=== PATIENT | male | born 1995 | race Caucasian/White ===

== ENCOUNTER 2016-12-26 13:26 | Emergency (ER) | payer OTHER ==
[~2016-12-26] VITALS: Ht 193 cm; Wt 75.0 kg
[2016-12-26 13:32] VITALS: TEMP 37.2; Ht 193 cm; Wt 75.0 kg
[2016-12-26] MEDS ORDERED: MoRPHine SULFATE 4 MG/ML 1 ML CARP\\VIAL IV STA (14:43)
[2016-12-26] MEDS ORDERED: ONDANSETRON INJ 2 MG/ML 2 ML VIAL IV STA (14:43)
[2016-12-26] MEDS ORDERED: SODIUM CHLORIDE 0.9% 1000ML 1,000 ML IV STA (14:43)
[2016-12-26 15:00] LABS: BASO % 0.3 %; BASO ABS # 0.03 K/uL (0-0.2); COMPLETE YES; EOS % 0.4 %; HEMATOCRIT 43.3 % (42-52); IG% 0.4 %; LYMPH % 19.3 %; LYMPH ABS # 2.21 K/uL (1.2-3.4); MEAN CORPUSCULAR HEMOGLOBIN 31.1 pg (25-34); MEAN CORPUSCULAR HGB CONC 35.3 g/dl (32-36); MEAN PLATELET VOLUME 8.7 fL (7.4-10.4); MONO % 8.4 %; NEUT % 71.2 %; PLATELET COUNT 276 K/uL (130-400); RED BLOOD COUNT 4.92 M/uL (4.7-6.1); WHITE BLOOD COUNT 11.43 K/uL (4.8-10.8)
[2016-12-26 15:18] LABS: BUN/CREATININE RATIO 13.5 (10-20); CREATININE 1.1 mg/dl (0.60-1.40); POTASSIUM 3.9 mmol/L (3.5-5.1)
[2016-12-26 15:27] LABS: MANUAL MICROSCOPIC REQUIRED? NO; REVIEW REQ? NO; URINE APPEARANCE TURBID (CLEAR); URINE BILIRUBIN NEG (NEG); URINE COLOR YELLOW; URINE NITRITE NEG (NEG); URINE SPECIFIC GRAVITY 1.018 (1.000-1.030); UROBILINOGEN NEG (NEG)
--- NOTE | 2016-12-26 15:38 | DIAGNOSTIC IMAGING REPORT ---
ABDOMEN AND PELVIS CT WITHOUT CONTRAST CT DOSE: 486.38 mGy.cm HISTORY: right flank pain eval for stone TECHNIQUE: Multiaxial CT images of the abdomen and pelvis were performed without the use of intravenous and oral contrast according to the standard department stone protocol. COMPARISON STUDY: None. FINDINGS: Lung bases are clear. Liver spleen and pancreas are unremarkable. Gallbladder is negative for distention. Right kidney demonstrates mild hydroureteronephrosis. There is a 5 mm nonobstructing calcification upper pole right kidney. Left kidney is negative for hydronephrosis. There is mild fullness of the right ureter to the distal aspect of the ureter with a 4 mm partially obstructing calculus. Bladder is midline and relatively collapsed. Bowel pattern throughout the abdomen and pelvis is considered nonobstructive. IMPRESSION: 1. 4 mm obstructing calculus distal aspect right ureter.. 2. Nonobstructing calculus upper pole right kidney. 3. Nonobstructive bowel pattern. Electronically signed by: Mario Duke M.D. 12/26/2016 3:36 PM Dictated Date/Time: 12/26/2016 3:34 PM
[2016-12-26] MEDS ORDERED: OXYC1TAB3 PO (16:22)
[2016-12-26] MEDS ORDERED: ONDA4TAB10 SL (16:22)
[2016-12-26] MEDS ORDERED: TAMS0.4C38 PO (16:22)
[2016-12-26 16:28] VITALS: BP 139/88; PULSE 78; O2SAT 99
[2016-12-26] MEDS ORDERED: TAMSULOSIN HCL 0.4 MG CAP PO ONE (16:30)
--- NOTE | 2016-12-26 18:07 | EMERGENCY ROOM VISIT NOTE ---
History Report prepared by Zeoy: Consuelo Yap Under the Supervision of: Dr. Antonio Panda M.D. First contact with patient: 14:37 Chief Complaint: ABDOMINAL PAIN Stated Complaint: ABD. PAIN Nursing Triage Summary: Triage note: Pt reports right lower abd pain that wraps around to back x 3 days. pt reports "i feel like i have to urinate but can't go." pt reports he was able to urinate today. History of Present Illness The patient is a 21 year old male who presents to the Emergency Room with complaints of waxing and waning bilateral lower abdominal pain starting 3 days ago. He initially started having right flank pain and then started having the lower abdominal pain. He describes his right flank pain to be a dull pain. He reports his lower abdominal pain is more severe than the right flank pain. He also reports bladder pressure. He denies burning with urination. He denies fevers, chills, nausea, vomiting, diarrhea, blood in stool, or any other complaints. He does not have any medical problems. The patient denies any history of abdominal surgeries. He denies any known family history of kidney stones. Source of History: patient Onset: 3 days ago Position: abdomen (bilateral) Timing: waxes/wanes Modifying Factors (Relieving): other (none) Associated Symptoms: No chills, No diarrhea, No fevers, No nausea, No vomiting Review of Systems See HPI for pertinent positives & negatives. A total of 10 systems reviewed and were otherwise negative. Past Medical & Surgical Medical Problems: (1) No Known Active Medical Problems Family History Patient reports no known family medical history. Social History Smoking Status: Never Smoker Marital Status: single Occupation Status: student Current/Historical Medications Scheduled Ondasetron Odt (Zofran Odt), 4 MG SL Q6H Scheduled PRN Oxycodone Ir (Roxicodone Ir), 5 MG PO Q4H PRN for Pain Tamsulosin Hcl (Flomax), 0.4 MG PO DAILY PRN for until stone passes Allergies Coded Allergies: No Known Allergies (Unverified , 12/26/16) Physical Exam Vital Signs Date Time Temp Pulse Resp B/P Pulse Ox O2 Delivery O2 Flow Rate FiO2 12/26/16 16:28 78 16 139/88 99 Room Air 12/26/16 15:04 62 16 127/84 100 Room Air 12/26/16 13:32 37.2 70 18 130/82 97 Room Air Physical Exam Constitutional: Vital signs reviewed. Eyes: Pupils are equal round reactive to light. Conjunctiva are noninjected. ENT: Pharynx is clear without erythema or exudate. Mucous membranes are moist. Neck supple without meningeal signs. Respiratory: Clear to auscultation bilaterally. Breath sounds are equal bilaterally. Cardiovascular: Regular rate and rhythm. No rubs or gallops. GI: Soft, nondistended and nontender. Bowel sounds are present. Musculoskeletal: No peripheral edema. No CVA tenderness. Integumentary: No cyanosis. Neurological: The patient is awake and alert. No focal deficits. Psychiatric: Normal affect. Medical Decision & Procedures ER Provider Diagnostic Interpretation: CT results as stated below per my review and radiologist interpretation. ABDOMEN AND PELVIS CT WITHOUT CONTRAST CT DOSE: 486.38 mGy.cm HISTORY: right flank pain eval for stone TECHNIQUE: Multiaxial CT images of the abdomen and pelvis were performed without the use of intravenous and oral contrast according to the standard department stone protocol. COMPARISON STUDY: None. FINDINGS: Lung bases are clear. Liver spleen and pancreas are unremarkable. Gallbladder is negative for distention. Right kidney demonstrates mild hydroureteronephrosis. There is a 5 mm nonobstructing calcification upper pole right kidney. Left kidney is negative for hydronephrosis. There is mild fullness of the right ureter to the distal aspect of the ureter with a 4 mm partially obstructing calculus. Bladder is midline and relatively collapsed. Bowel pattern throughout the abdomen and pelvis is considered nonobstructive. IMPRESSION: 1. 4 mm obstructing calculus distal aspect right ureter.. 2. Nonobstructing calculus upper pole right kidney. 3. Nonobstructive bowel pattern. Electronically signed by: Mario Duke M.D. 12/26/2016 3:36 PM Dictated Date/Time: 12/26/2016 3:34 PM Laboratory Results 12/26/16 14:41 Red Blood Count 4.92, Mean Corpuscular Volume 88.0, Mean Corpuscular Hemoglobin 31.1, Mean Corpuscular Hemoglobin Concent 35.3, Mean Platelet Volume 8.7, Neutrophils (%) (Auto) 71.2, Lymphocytes (%) (Auto) 19.3, Monocytes (%) (Auto) 8.4, Eosinophils (%) (Auto) 0.4, Basophils (%) (Auto) 0.3, Neutrophils # (Auto) 8.13, Lymphocytes # (Auto) 2.21, Monocytes # (Auto) 0.96, Eosinophils # (Auto) 0.05, Basophils # (Auto) 0.03 12/26/16 14:41 Test 12/26/16 14:35 12/26/16 14:41 Urine Color YELLOW Urine Appearance TURBID (CLEAR) Urine pH 8.0 (4.5-7.5) Urine Specific [place] 1.018 (1.000-1.030) Urine Protein NEG (NEG) Urine Glucose (UA) NEG (NEG) Urine Ketones NEG (NEG) Urine Occult Blood 1+ (NEG) Urine Nitrite NEG (NEG) Urine Bilirubin NEG (NEG) Urine Urobilinogen NEG (NEG) Urine Leukocyte Esterase NEG (NEG) Urine WBC (Auto) 1-5 /hpf (0-5) Urine RBC (Auto) 10-30 /hpf (0-4) Urine Hyaline Casts (Auto) 1-5 /lpf (0-5) Urine Epithelial Cells (Auto) 5-10 /lpf (0-5) Urine Bacteria (Auto) NEG (NEG) White Blood Count 11.43 K/uL (4.8-10.8) Red Blood Count 4.92 M/uL (4.7-6.1) Hemoglobin 15.3 g/dL (14.0-18.0) Hematocrit 43.3 % (42-52) Mean Corpuscular Volume 88.0 fL (80-100) Mean Corpuscular Hemoglobin 31.1 pg (25-34) Mean Corpuscular Hemoglobin Concent 35.3 g/dl (32-36) Platelet Count 276 K/uL (130-400) Mean Platelet Volume 8.7 fL (7.4-10.4) Neutrophils (%) (Auto) 71.2 % Lymphocytes (%) (Auto) 19.3 % Monocytes (%) (Auto) 8.4 % Eosinophils (%) (Auto) 0.4 % Basophils (%) (Auto) 0.3 % Neutrophils # (Auto) 8.13 K/uL (1.4-6.5) Lymphocytes # (Auto) 2.21 K/uL (1.2-3.4) Monocytes # (Auto) 0.96 K/uL (0.11-0.59) Eosinophils # (Auto) 0.05 K/uL (0-0.5) Basophils # (Auto) 0.03 K/uL (0-0.2) RDW Standard Deviation 42.5 fL (36.4-46.3) RDW Coefficient of Variation 13.2 % (11.5-14.5) Immature Granulocyte % (Auto) 0.4 % Immature Granulocyte # (Auto) 0.05 K/uL (0.00-0.02) Anion Gap 9.0 mmol/L (3-11) Est Creatinine Clear Calc Drug Dose 113.6 ml/min Estimated GFR () 111.4 Estimated GFR (Non- 96.1 BUN/Creatinine Ratio 13.5 (10-20) Calcium Level 9.0 mg/dl (8.5-10.1) Total Bilirubin 0.6 mg/dl (0.2-1) Direct Bilirubin 0.1 mg/dl (0-0.2) Aspartate Amino Transf (AST/SGOT) 16 U/L (15-37) Alanine Aminotransferase (ALT/SGPT) 22 U/L (12-78) Alkaline Phosphatase 66 U/L (45-117) Total Protein 7.0 gm/dl (6.4-8.2) Albumin 3.9 gm/dl (3.4-5.0) Lipase 102 U/L (73-393) Laboratory results as reviewed by me. Medications Administered Medications (Trade) Dose Ordered Sig/Sherman Route Start Time Stop Time Status Last Admin Dose Admin Morphine Sulfate (MoRPHine SULFATE INJ) 4 mg ONE STAT IV 12/26/16 14:43 12/26/16 14:45 DC 12/26/16 15:00 4 MG Ondansetron HCl 4 mg 4 mg NOW STAT IV 12/26/16 14:43 12/26/16 14:45 DC 12/26/16 15:00 4 MG Sodium Chloride (Nss 1000ml) 1,000 ml @ 999 mls/hr Q1H1M STAT IV 12/26/16 14:43 12/26/16 15:43 DC 12/26/16 15:00 999 MLS/HR Tamsulosin HCl (Flomax Cap) 0.4 mg NOW ONCE PO 12/26/16 16:30 12/26/16 16:31 DC 12/26/16 16:25 0.4 MG ED Course 1437: The patient was evaluated in room A11B. A complete history and physical exam was performed. 1443: Sodium Chloride 1000 ml @ 999 mls/hr IV, Zofran Inj 4 mg IV, Morphine Sulfate 4 mg IV 1630: Flomax Cap 0.4 mg PO 1633: Upon reevaluation, the patient appeared to have improvement of his symptoms. I discussed tonight's findings with him. He is leaving for [place] tomorrow. I told him that this is not advisable as he can have severe chest pain during the trip or even on the plane. He said that he will think about it. He will be discharged home. Medical Decision This is a 21-year-old male who presents with right flank pain and lower abdominal pain. Differential diagnosis includes appendicitis, renal colic, hydronephrosis, inflammatory bowel disease, UTI. I did perform a limited focused review of portions of the patient's old chart on the electronic medical record. The patient has had no prior visits. I did evaluate the patient as noted above. The patient is presenting with right flank pain. He has no abdominal tenderness on examination. IV access was established. I did treat him with IV morphine and Zofran. He is also given normal saline IV. I did order and personally review the patient's urinalysis as described above. He has hematuria but no signs of significant infection. I did order and review the patient's blood work as noted in the electronic medical record. His white blood cell count is slightly elevated which is a nonspecific finding. His renal function is unremarkable. I did order a CT of the abdomen and pelvis. I did review the images myself as well as the radiology report as described above.He does have a 4 mm distal right ureteral stone. I did reassess the patient. He is feeling much better. I did discuss the test results with him in detail. He does state that he is planning on traveling to [place] tomorrow. I did state that this would be risky for him and that perhaps he should cancel his trip as he may have recurrence of fairly significant pain. He said he would think about it. He was given Flomax here. He was discharged with a prescription for oxycodone, Flomax and Zofran. He is given precautions regarding these medications. He was referred to Dr. Hendrix of urology. He was given a note to present to the airline and travel services. [place] Drug Monitoring Program Search Results: patient reviewed within database Drug Monitoring Findings: No patients with that name were found. Impression Primary Impression: Renal colic Scribe Attestation The scribe's documentation has been prepared under my direct and personally reviewed by me in its entirety. I confirm that the note above accurately reflects all work, treatment, procedures, and medical decision making performed by me. Departure Information Dispostion Home / Self-Care Prescriptions Tamsulosin Hcl (FLOMAX) 0.4 Mg Cap 0.4 MG PO DAILY Y for until stone passes, #7 CAP Prov: Antonio Panda M.D. 12/26/16 Ondasetron Odt (ZOFRAN ODT) 4 Mg Tab 4 MG SL Q6H for Nausea, #10 TAB Prov: Antonio Panda M.D. 12/26/16 Oxycodone Ir (Roxicodone Ir) 5 Mg Tab 5 MG PO Q4H Y for Pain, #25 TAB Prov: Antonio Panda M.D. 12/26/16 Referrals No Doctor, Assigned (PCP) Forms HOME CARE DOCUMENTATION FORM, IMPORTANT VISIT INFORMATION Patient Instructions Kidney Stones Expectant Therapy, My [facility] Additional Instructions You have been examined and treated today on an emergency basis only. This is not a substitute for, or an effort to provide, complete comprehensive medical care. It is impossible to recognize and treat all injuries or illnesses in a single emergency department visit. It is therefore important that you follow up closely with Dr. Hendrix of urology. Call as soon as possible for an appointment. Return for worsening symptoms or if you develop fever, vomiting, or any other concerning symptoms. Stop Flomax once you have passed the stone.
[2017-01-29] MEDS ORDERED: OXYC1TAB3 PO (14:28)
[2017-02-02] MEDS ORDERED: OXYC1TAB3 PO (13:09)
== END 2016-12-26 16:38 | disposition home or self-care (01) ==
LOC: C.EDB 13:28 → C.EDA 16:38
DX: N23 Unspecified renal colic (principal); N20.1 Calculus of ureter

== ENCOUNTER → 2017-01-19 | Outpatient (CLI) | payer OTHER ==
[~2017-01-19] MED LIST: ONDA4TAB10 SL; OXYC1TAB3 PO
== END | disposition home or self-care (01) ==
LOC: C.LABSPEC 14:44
PROVIDERS: ATTEND Urology
DX: Z00.00 Encounter for general adult medical examination without abnormal findings (principal); N20.0 Calculus of kidney; N20.1 Calculus of ureter

== ENCOUNTER 2017-01-20 03:55 | Emergency (ER) | payer OTHER ==
[~2017-01-20] VITALS: Ht 193 cm; Wt 77.9 kg
[2017-01-20 03:58] VITALS: BP 129/80; PULSE 76; TEMP 37; O2SAT 95; Ht 193 cm; Wt 77.9 kg
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
[2017-01-29] MEDS ORDERED: OXYC1TAB3 PO (14:28)
[2017-02-02] MEDS ORDERED: OXYC1TAB3 PO (13:09)
== END 2017-01-20 04:23 | disposition home or self-care (01) ==
LOC: C.EDB 03:55
DX: S01.81XA Laceration without foreign body of other part of head, initial encounter (principal); W22.01XA Walked into wall, initial encounter

== ENCOUNTER → 2017-01-24 | Outpatient (CLI) | payer OTHER ==
--- NOTE | 2017-01-24 13:03 | DIAGNOSTIC IMAGING REPORT ---
KUB CLINICAL HISTORY: Right ureteral stone. COMPARISON STUDY: CT of the abdomen and pelvis December 26, 2016 FINDINGS: A few right renal calculi measure up to 5 mm. The distal right ureteral stone shown on CT of December 26, 2016 is not visualized on this exam and has likely passed although evaluation is mildly compromised by stool within the rectum. IMPRESSION: 1. Distal right ureteral calculus shown on CT of December 26, 2016 is not visualized and has likely passed although evaluation is mildly compromised by stool within the rectum. 2. Right-sided nephrolithiasis. Electronically signed by: Donnell Galvan M.D. 01/24/2017 1:01 PM Dictated Date/Time: 01/24/2017 1:00 PM
== END | disposition home or self-care (01) ==
LOC: C.RAD 12:08
PROVIDERS: ATTEND Urology
DX: N20.2 Calculus of kidney with calculus of ureter (principal)

== ENCOUNTER → 2017-01-25 | Outpatient (CLI) | payer OTHER | END | disposition home or self-care (01) | LOC: C.LABSPEC 11:21 | PROVIDERS: ATTEND Urology | DX: N20.0 Calculus of kidney (principal) ==

== ENCOUNTER → 2017-01-26 | Day surgery (SDC) | payer OTHER ==
[~2017-01-26] VITALS: Ht 193 cm; Wt 79.5 kg
[~2017-01-26] MED LIST changes: +CIPROFLOXACIN 400MG / D5W IV SCH; +DEXAMETHASONE SOD INJ 4 MG/ML VIAL ONE; +FENTANYL CITRATE INJ 50 MCG/1 ML 2 ML VIAL ONE; +LACTATED RINGER'S 1000ML 1,000 ML IV SCH; +LIDOCAINE HCL 2% 2 ML VIAL (20MG/ML) ONE; +MIDAZOLAM HCL 1 MG/ML 2ML VIAL ONE; +ONDANSETRON INJ 2 MG/ML 2 ML VIAL ONE; +PROPOFOL IV EMULSION 10 MG/ML 20 ML VIAL IV ONE
[2017-01-26 08:16] VITALS: BP 106/70; PULSE 87; TEMP 36.8; O2SAT 96; Ht 193 cm; Wt 79.5 kg
== END | disposition home or self-care (01) ==
LOC: X.SURG 08:02
PROVIDERS: ATTEND Urology
DX: N20.0 Calculus of kidney (principal); Z53.8 Procedure and treatment not carried out for other reasons

== ENCOUNTER → 2017-02-02 | Day surgery (SDC) | payer OTHER ==
[2017-01-29 14:28] VITALS: Ht 193 cm; Wt 79.5 kg
[~2017-02-02] VITALS: Ht 193 cm; Wt 79.5 kg
[~2017-02-02] MED LIST changes: +ACETAMINOPHEN 325 MG TAB PO PRN; +ATROPINE SULFATE 0.1 MG/ML 5ML SYR IV PRN; -DEXAMETHASONE SOD INJ 4 MG/ML VIAL ONE; +EpHEDrine SULFATE INJ 50 MG/ML AMP IV PRN; +FENTANYL CITRATE INJ 50 MCG/1 ML 2 ML VIAL IV PRN; +GLYCOPYRROLATE INJ 0.2 MG/ML VIAL ONE; -ONDA4TAB10 SL; +ONDANSETRON INJ 2 MG/ML 2 ML VIAL IV PRN; -ONDANSETRON INJ 2 MG/ML 2 ML VIAL ONE; +OXYCODONE/ACETAMINOPHEN 5-325 TAB PO PRN; +SODIUM CHLORIDE 0.9% 1000ML 1,000 ML IV SCH
--- NOTE | 2017-02-02 11:37 | History & Physical Bridge Note ---
H&P Re-Evaluation Bridge Note: I have examined the patient, reviewed the History & Physical and in the interval since the performance of the History & Physical I have noted the following changes of clinical significance: No changes noted
--- NOTE | 2017-02-02 13:09 | Discharge Instructions-SurgCtr ---
Discharge Instructions Date of Service Feb 02, 2017. Visit Reason for Visit: Stones Discharge Discharge Diagnosis / Problem: stones Discharge Goals Goal(s): Decrease discomfort, Improve function, Increase independence, Improve disease control Activity Recommendations Activity Limitations: resume your previous activity Lifting Limitations: none Exercise/Sports Limitations: none May Resume Sexual Activity: when tolerated Shower/Bathe: no limitations Driving or Machine Use: no limitations Anesthesia . Post Anesthesia Instructions: If you have had General Anesthesia or IV Sedation: * Do not drive today. * Resume driving when surgeon permits. * Do not make important decisions or sign legal documents today. * Call surgeon for: 1. Temperature elevations greater than 101 degrees F. 2. Uncontrollable pain. 3. Excessive bleeding. 4. Persistent nausea and vomiting. 5. Medication intolerance (nausea, vomiting or rash). * For nausea and vomiting use only clear liquids such as: tea, soda, bouillon until nausea subsides, then gradually increase diet as tolerated. * If you have any concerns or questions, call your surgeon's office. If physician is unavailable and it is an emergency, call 911 or go to the nearest emergency room. . Diet Recommendations Home Diet: no limitations Procedures Procedures Performed: Right Renal Extracorporeal Shock Wave Lithotripsy Pending Studies Studies pending at discharge: no Medical Emergencies . Who to Call and When: Medical Emergencies: If at any time you feel your situation is an emergency, please call 911 immediately. . Non-Emergent Contact Non-Emergency issues call your: Urologist Call Non-Emergent contact if: you have a fever, temperature is above 101.5, your pain is not controlled, your pain is worsening, your pain is unusual for you . . "Provider Documentation" section prepared by Kirill Regalado.
--- NOTE | 2017-02-02 13:33 | OPERATIVE REPORT ---
DATE OF OPERATION: 02/02/2017 PREOPERATIVE DIAGNOSIS: Right renal calculus. POSTOPERATIVE DIAGNOSIS: Right renal calculus. PROCEDURE PERFORMED: Right extracorporeal shockwave lithotripsy. ANESTHESIA: General. ESTIMATED BLOOD LOSS: 0. URINE OUTPUT: Not recorded. SPECIMENS: There were no specimens. DRAINS: There were no drains. DESCRIPTION OF THE PROCEDURE: Fran Parks was identified in the preoperative holding area. Appropriate informed consents were reviewed and completed and the patient was transported to the operating suite. Upon arrival, he received appropriate preoperative antibiotics in the form of ciprofloxacin. Adequate general anesthesia was achieved and the patient was placed in supine position. Stone was localized under fluoroscopy. Lithotripsy was commenced with a total of 2500 shocks delivered to the stone. At the conclusion of the case, the patient was extubated and taken to the PACU in stable condition. Further details can be found on the [place] Management Information Sheet. I attest to the content of the Intraoperative Record and any orders documented therein. Any exceptio ns are noted below.
--- NOTE | 2017-02-02 13:36 | Anesthesia Progress Nt - [facility] ---
Anesthesia Post Op Note Date & Time Feb 02, 2017 at 13:35 Vital Signs Pain Intensity: 0 Vital Signs Past 12 Hours Date Time Temp Pulse Resp B/P Pulse Ox O2 Delivery O2 Flow Rate FiO2 02/02/17 13:23 36.6 98 18 139/98 99 Room Air 02/02/17 10:11 37 77 20 113/78 96 Room Air Notes Mental Status: alert / awake / arousable, participated in evaluation Pt Amnestic to Procedure: Yes Nausea / Vomiting: adequately controlled Pain: adequately controlled Airway Patency, RR, SpO2: stable & adequate BP & HR: stable & adequate Hydration State: stable & adequate Anesthetic Complications: no major complications apparent
[2017-02-02 13:43] VITALS: BP 123/85; PULSE 86; TEMP 36.6; O2SAT 87
== END | disposition home or self-care (01) ==
LOC: X.SURG 09:47
PROVIDERS: ATTEND Urology
DX: N20.0 Calculus of kidney (principal); N20.1 Calculus of ureter

== ENCOUNTER → 2017-02-15 | Outpatient (CLI) | payer OTHER ==
[~2017-02-15] MED LIST changes: -ACETAMINOPHEN 325 MG TAB PO PRN; -ATROPINE SULFATE 0.1 MG/ML 5ML SYR IV PRN; -CIPROFLOXACIN 400MG / D5W IV SCH; -EpHEDrine SULFATE INJ 50 MG/ML AMP IV PRN; -FENTANYL CITRATE INJ 50 MCG/1 ML 2 ML VIAL IV PRN; -FENTANYL CITRATE INJ 50 MCG/1 ML 2 ML VIAL ONE; -GLYCOPYRROLATE INJ 0.2 MG/ML VIAL ONE; -LACTATED RINGER'S 1000ML 1,000 ML IV SCH; -LIDOCAINE HCL 2% 2 ML VIAL (20MG/ML) ONE; -MIDAZOLAM HCL 1 MG/ML 2ML VIAL ONE; -ONDANSETRON INJ 2 MG/ML 2 ML VIAL IV PRN; -OXYCODONE/ACETAMINOPHEN 5-325 TAB PO PRN; -PROPOFOL IV EMULSION 10 MG/ML 20 ML VIAL IV ONE; -SODIUM CHLORIDE 0.9% 1000ML 1,000 ML IV SCH
--- NOTE | 2017-02-15 12:50 | DIAGNOSTIC IMAGING REPORT ---
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 No new or interval calcifications. Bowel pattern is nonobstructive. No significant paravertebral calcifications. IMPRESSION: Unchanging 4 mm calculus mid right kidney. Study is otherwise negative. Electronically signed by: Mario Duke M.D. 02/15/2017 12:48 PM Dictated Date/Time: 02/15/2017 12:45 PM
== END | disposition home or self-care (01) ==
LOC: C.RAD 12:21
PROVIDERS: ATTEND Urology
DX: N20.0 Calculus of kidney (principal)